=== PATIENT | male | born 1960 | race Caucasian/White ===

== ENCOUNTER 2019-10-15 04:56 | Inpatient (IN) | payer OTHER, SELFPAY ==
[2019-10-15] VITALS (13 sets, daily range): BP systolic 110–156; BP diastolic 55–81; PULSE 69–108; RESP 16–20; TEMP 36.7–39.3; O2SAT 93–95
--- NOTE | ~2019-10-15 | XR_ITS ---
EXAMINATION: XR chest 1V portable DATE: 10/20/2019 06:09 INDICATION: COVID 19 pneumonia TECHNIQUE: frontal view of the chest was obtained. COMPARISON: Chest radiograph dated 10/18/19 FINDINGS: No significant interval change accounting for more lordotic positioning in scattered bilateral streak y and patchy airspace opacities. No pneumothorax or definitive pleural effusion. The cardiomediastina l silhouette is normal. Calcination along an old posterior right seventh rib fracture. IMPRESSION: 1. Unchanged bilateral lung disease which could represent pneumonia and/or atelectasis. Reviewed, dictated and finalized at location A. IMPRESSION: 1. Unchanged bilateral lung disease which could represent pneumonia and/or atel ectasis.
--- NOTE | ~2019-10-15 | XR_ITS ---
EXAMINATION: XR chest 1V portable DATE: 10/17/2019 08:50 INDICATION: COVID-19 pneumonia. TECHNIQUE: A single frontal view of the chest was obtained. COMPARISON: Chest single view 10/15/2019 FINDINGS: There are mild airspace opacities in the mid and lower lung zones. No pleural effusion or p neumothorax. The heart size is normal. IMPRESSION: 1. Stable mild airspace opacities in the mid and lower lung zones, consistent with pneumonia. Reviewed, dictated and finalized at location A. IMPRESSION: 1. Stable mild airspace opacities in the mid and lower lung zones, consistent w ith pneumonia.
--- NOTE | ~2019-10-15 | XR_ITS ---
EXAMINATION: XR chest 1V portable DATE: 10/15/2019 06:22 INDICATION: Cough and fever. TECHNIQUE: A single frontal view of the chest was obtained. COMPARISON: None. FINDINGS: There are airspace opacities in the perihilar regions and lower lung zones. No pleural effu aminta or pneumothorax. The heart size is normal. There is an old healed fracture of right seventh rib. IMPRESSION: 1. Airspace opacities in the perihilar regions and lower lung zones, consistent with pneumonia versus atelectasis versus chronic lung disease. Reviewed, dictated and finalized at location A.
--- NOTE | ~2019-10-15 | XR_ITS ---
EXAMINATION: XR chest 1V portable INDICATION: COVID-19 pneumonia, worsening hypoxia TECHNIQUE: Portable AP chest at 0559 hours COMPARISON: 10/17/2019 FINDINGS: Airspace opacities of the mid and lower lung zones persist with slight worsening. There is also developing airspace opacity of the right upper lung zone. The heart size is normal. There is no pleural effusion or pneumothorax. IMPRESSION: 1. Worsening airspace opacities, consistent with pneumonia. Reviewed, dictated and finalized at location A.
--- NOTE | 2019-10-15 05:12 | ECG_ITS ---
Measurements Intervals [place] Rate: 102 P: 21 FL: 174 QRS: -68 QRSD: 92 T: -9 QT: 344 QTc: 449 Interpretive Statements SINUS TACHYCARDIA LEFT ANTERIOR FASCICULAR BLOCK BORDERLINE T WAVE ABNORMALITY- INFERIOR LEADS BASELINE WANDER- I, II ABNORMAL ECG Electronically Signed On 10-15-2019 7:14:54 CDT by Rafael French D.O.
[2019-10-15 05:45] LABS: Basophils Percent Auto 0.2 % (0.2-1.2); Eosinophils Percent Auto 0.4 % (0-4.4); Hematocrit 45.3 % (42.0-52.0); Hemoglobin 15.6 g/dL (14.0-18.0); Immature Granulocyte Absolute 0.04 K/mm3 (0.00-0.031); Immature Granulocyte Percent A 0.8 % (0-0.5); Lymphocytes Absolute Auto 1.23 K/mm3 (0.9-3.2); Lymphocytes Percent Auto 24.4 % (18.3-44.2); Mean Corpuscular HGB Conc 34.4 g/dl (32-36); Mean Corpuscular Hemoglobin 28.7 pg (26-34); Mean Corpuscular Volume 83.3 fl (80-100); Mean Platelet Volume 10.6 fl (7.4-10.4); Monocytes Absolute Auto 0.4 K/mm3 (0.1-0.6); Monocytes Percent Auto 7.7 % (2.6-8.5); Neutrophils Absolute Auto 3.4 K/mm3 (1.3-6.7); Neutrophils Percent Auto 66.5 % (45.5-73.1); Platelet Count Result 149 k/mm3 (150-375); Red Blood Count 5.44 M/mm3 (4.6-6.20); Red Cell Distribution Width 12.2 % (11.5-14.5)
[2019-10-15 05:57] LABS: Partial Thromboplastin Time 38.8 SECONDS (22.3-36.8); Prothrombin Time 12.7 Seconds (11.1-14.7)
[2019-10-15 06:09] LABS: Alveolar/Arterial O2 Gradient 40.2 mmHg; Carboxyhemoglobin 0.5 % THb (0-2.0); Fractional Inspired Oxygen 21 %; HCO3 ABG 19.8 mEq/l (22.0-26.0); Methemoglobin ABG 0.2 %THb (0-1.5); Oxygen Content ABG 20.7 %vol (16.0-22.0); Oxygen Saturation ABG 96.5 % (95.0-100.0); Oxyhemoglobin 95.1 % THb (90.0-100.0); PCO2 ABG 26.9 mmHg (35.0-45.0); PO2 ABG 77.3 mmHg (80.0-100.0); PO2 FiO2 Ratio Arterial Blood 3.68 %; Reduced Hemoglobin 4.2 %THb (0-5.0); Total Hemoglobin 15.5 g/dL (12.0-18.0); pH ABG 7.484 (7.350-7.450)
[2019-10-15 06:10] LABS: Device ROOM AIR; Modified Allen's Test Pass; Site Drawn RIGHT RADIAL
[2019-10-15 06:14] LABS: Lactate Dehydrogenase 758 U/L (313-618)
[2019-10-15 06:15] LABS: Lactic Acid Reflex 0.9 mmol/L (0.7-2.1)
[2019-10-15 06:16] LABS: Alanine Aminotransferase 36 U/L (4-50); Albumin Level 4.2 g/dL (3.5-5.1); Alkaline Phosphatase 98 U/L (38-126); Aspartate Amino Transferase 51 U/L (17-59); Bilirubin,Total 0.6 mg/dL (0.2-1.3); Blood Urea Nitrogen 11 mg/dL (9-20); CRP 3.6 mg/dL (<1.0); Carbon Dioxide 22 mmol/L (22-30); Chloride 106 mmol/L (98-107); Estimated CRCL calculation 81 ml/min; Estimated Glomerular Filt Rate > 60; Glucose 123 mg/dL (75-110); Lipase 175 U/L (23-300); Potassium 3.6 mmol/L (3.4-5.0); Sodium 136 mmol/L (137-145)
[2019-10-15 06:24] LABS: Troponin I < 0.012 ng/mL (0.000-0.034)
--- NOTE | 2019-10-15 06:34 | ED.FEVER ---
HPI - Fever General Chief Complaint: Fever Stated Complaint: fever Time Seen by Provider: 10/15/19 05:11 Source: patient Mode of arrival: ambulatory Limitations: no limitations History of Present Illness HPI Narrative: This patient is 59 year old male who presents for evaluation of fever and shortness of breath. Patient works as a nurse at [employer]. He has been having fever intermittently for 9 days, and his fever has been constant for the past 3 days . He has been taking tylenol , motrin around the clock. He took 1 gram of tylenol just prior to arrival. Patient states he came in this morning because he is now having shortness of breath with exertion and some substernal chest pressure. He also noticed that his oxygen saturation was 86% on room air at home. He states he was likely exposed during a cardiac arrest in the ER 2 weeks ago. MD elicited complaint: fever Related Data Home Medications Medication Instructions Recorded Confirmed albuterol sulfate [Ventolin HFA] 1 inh INHALATION QID 10/15/19 fluticasone propion-salmeterol 1 inh INHALATION DAILY 10/15/19 [Advair Diskus] Allergies Allergy/AdvReac Type Severity Reaction Status Date / Time povidone-iodine Allergy Rash Verified 10/15/19 07:15 [From Betadine] soap [From Betadine] Allergy Rash Verified 10/15/19 07:15 narcotic AdvReac Nausea and Uncoded 10/15/19 07:15 Vomiting Review of Systems Constitutional: Constitutional: Reports chills, Reports fatigue and Reports fever(s) ENT: Reports sore throat Cardiovascular: Cardiovascular: Reports chest pain Respiratory: Respiratory: Reports cough and Reports dyspnea Gastrointestinal: Gastrointestinal: Denies abdominal pain, Denies nausea and Denies vomiting Neurologic: Reports headache(s) [facility] Past Medical History Medical History (Updated 10/15/19 @ 07:22 by Estelle Zimmerman MD) Asthma Fracture of left tibia and fibula Surgical History Surgical History (Updated 10/15/19 @ 06:39 by Estelle Zimmerman MD) Hx of tonsillectomy Social History Social History (Updated 10/15/19 @ 06:40 by Estelle Zimmerman MD) Smoking status: Never smoker Substance use: never Exam Const: General: no acute distress and alert Orientation/consciousness: patient oriented x3 Limitations: other limitations HENMT: Head: normocephalic and atraumatic Face and sinus: face symmetric Eyes: Pupils: Equal, round and reactive pupils present EOM: EOMs intact bilaterally Chest: Chest palpation & inspection: normal inspection of the chest Resp: Effort & Inspection: normal respiratory effort Auscultation: clear to auscultation bilaterally Cardio: Rate: tachycardic Rhythm: regular rhythm Heart sounds: no murmurs Peripheral pulses: radial pulses present bilateral GI: GI Palp: Yes Soft to palpation, No Tenderness to palpation present (GI), No Guarding due to palpation present (GI), No Rigid due to palpation and No Hernia present Skin: General skin exam: normal color Rashes: no rashes Neuro: General: patient oriented x3 and moves all extremities Extrem: General: no pedal edema Course Consultations Consultation #1: I have discussed case with Dr. Whyte who accepts patient to the medical floor on hospitalist service Date: 10/15/19 Time: 07:21 Vital Signs Vital signs: Vital Signs Temperature 100.5 F H 10/15/19 05:00 Pulse Rate 108 H 10/15/19 05:00 Respiratory Rate 20 10/15/19 05:00 Blood Pressure 125/81 10/15/19 05:00 Pulse Oximetry 94 10/15/19 05:00 Temperature 100.2 F H 10/15/19 07:40 Pulse Rate 94 10/15/19 07:14 Respiratory Rate 18 10/15/19 07:14 Blood Pressure 128/78 10/15/19 07:14 Pulse Oximetry 94 10/15/19 07:14 MDM - Fever Lab Data Attestation: I reviewed the patient's lab results. Result diagrams: 10/15/19 05:34 10/15/19 05:34 Labs: Lab Results 10/15/19 10/15/19 10/15/19 Range/Units 05:34
--- NOTE | 2019-10-15 07:16 | PC.NURSE ---
Pt given urinal for attempt to provide UA, pt refusing straight cath at this time.
[2019-10-15] MEDS: LACTATED RINGERS 1,000 ML 999 ML IV CONT (07:38)
[2019-10-15] MEDS: KETOROLAC 30 MG/ML VIAL (*BKC) IV PUSH (07:38)
[2019-10-15 08:10] LABS: Add Urine Microscopic? YES; Appearance Urine Clear (Clear); Bilirubin Urine Negative (Negative); Blood Urine Negative (Negative); Color Urine Yellow (Yellow); Glucose Urine UA 1+ mg/dL (Negative); Ketones Urine Negative (Negative); Leukocyte Esterase Ur Negative LEU/UL (Negative); Mucus Urine Rare /lpf; Nitrate Urine Negative (Negative); Protein Urine 2+ mg/dL (Negative); Specific Grav Ur 1.012 (1.001-1.035); Squamous Epithelial Cell Urine Rare /hpf (Few); Urobilinogen Urine Negative mg/dL (<2.0); WBC Urine 0-3 /hpf
--- NOTE | 2019-10-15 08:24 | ADMGEN ---
This patient, Judson Ugalde, was admitted to [facility] Surg Room 331-01. Patient/family oriented to hospital policies and general routines including ID bracelet, bed and alarms, visiting hours, pain management, procedures, bathroom and other care routines, personal items, smoking policy, room service/diet, and visiting hours. Valuables list has been completed. Information on how to activate the Rapid Response Team has been discussed. Patient/Family are encouraged to report perceived risks to care and to ask questions if they do not understand what they are told or what they should do.
[2019-10-15] MEDS: LACTATED RINGERS 1,000 ML 125 ML IV CONT ×2 (10:03→17:21)
[2019-10-15] MEDS: ENOXAPARIN 40 MG/0.4 ML SYRINGE SUB-Q (12:30)
--- NOTE | 2019-10-15 16:18 | PM.IMHP ---
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 About 2 weeks ago he was involved in a code blue situation with the patient infected with SARS-CoV-2. About 9 days ago he developed low-grade intermittent fever. He felt achy and tired. For the 2 days prior to admission the fever remained fairly constant at just over 100. His cough increased. He became more short of breath with walking from bed to bathroom. He developed mild sore throat along with the persistent dry cough. He had a mild substernal chest pressure that was worse with coughing. His home pulse oximeter read 86% on room air, therefore he presented to the emergency department. He has a traveling nurse. Most recently he worked in [place] and in [place] prior to coming to [facility]. He he denied other travel. His travels with him. He has been sheltering in place when not working. His own greatly chronic medical condition is asthma which has been under very good control with his maintenance inhaler. He rarely uses his rescue inhaler. Review of Systems Review of Systems: All systems reviewed & are unremarkable except as noted in HPI and below PMFSH Past Medical History Medical History Asthma Fracture of left tibia and fibula Surgical History Surgical History Hx of tonsillectomy Family History Family History Mother Asthma Father Lung cancer Social History Social History (Updated 10/15/19 @ 18:52 by Antione Whyte MD) Smoking status: Never smoker Alcohol intake: never Substance use: never Substance use type: does not use Living arrangements: with family Additional living arrangements comments: Resides with his Occupation/Education: occupation 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 Gender identity (if verbalized by the patient): Male Spiritual care concerns: No Meds Home Medications and Allergies Home Medications Medication Instructions Recorded Confirmed Type albuterol sulfate [Ventolin HFA] 1 inh INHALATION QID 10/15/19 10/15/19 History fluticasone propion-salmeterol 1 inh INHALATION DAILY 10/15/19 10/15/19 History [Advair Diskus] Allergies Allergy/AdvReac Type Severity Reaction Status Date / Time povidone-iodine Allergy Rash Verified 10/15/19 07:15 [From Betadine] soap [From Betadine] Allergy Rash Verified 10/15/19 07:15 narcotic AdvReac Severe Nausea and Uncoded 10/15/19 10:25 Vomiting Vital Signs Vital Signs - 24 hr 10/15/19 05:00 10/15/19 05:22 10/15/19 06:21 Temperature 100.5 F H Pulse Rate 108 H 92 Respiratory Rate 20 20 20 Blood Pressure 125/81 117/66 Pulse Oximetry 94 94 10/15/19 07:14 10/15/19 07:40 10/15/19 08:32 Temperature 100.2 F H Pulse Rate 94 79 Respiratory Rate 18 19 Blood Pressure 128/78 127/65 Pulse Oximetry 94 95 10/15/19 10:00 10/15/19 14:00 10/15/19 15:07 Temperature 98.0 F 99.2 F 102.5 F H Pulse Rate 69 89 Respiratory Rate 16 16 Blood Pressure 110/55 L 156/70 H Pulse Oximetry 94 95 10/15/19 15:37 Temperature 99.5 F Pulse Rate Respiratory Rate Blood Pressure Pulse Oximetry Exam Narrative: Exam Narrative: HEENT: EOMI, PERRL, sclerae nonicteric, pharyngeal mucosa pink and intact NECK: No JVD, adenopathy, or thyromegaly CHEST: Mildly tachypneic with frequent dry cough. Scattered mild expiratory wheezes anteriorly and posteriorly. HEART: NL S1/S2, regular, no murmur ABDOMEN: BS+, soft, nontender, no mass, no bruits EXTREMITIES: No cyanosis, edema, or clubbing NEUROLOGIC: CN intact and symmetric to inspection. MUSCULOSKELETAL: Tone and strength symmetric. PSYCH: Alert. Oriented
[2019-10-15 16:38] LABS: SARS-CoV-2 RNA PCR Positive
[2019-10-15] MEDS: ACETAMINOPHEN 325 MG TABLET 650 MG PO (20:11)
[2019-10-16] VITALS (16 sets, daily range): BP systolic 127–139; BP diastolic 47–70; PULSE 71–98; RESP 14–20; TEMP 37.7–39.5; O2SAT 90–94
[2019-10-16] MEDS: LACTATED RINGERS 1,000 ML 125 ML IV CONT ×2 (01:18→08:18)
[2019-10-16] MEDS: ACETAMINOPHEN 325 MG TABLET 650 MG PO ×3 (01:46→13:26)
[2019-10-16 07:23] LABS: Basophils Percent Auto 0.2 % (0.2-1.2); Hematocrit 41.9 % (42.0-52.0); Immature Granulocyte Absolute 0.05 K/mm3 (0.00-0.031); Lymphocytes Absolute Auto 1.55 K/mm3 (0.9-3.2); Lymphocytes Percent Auto 31.3 % (18.3-44.2); Mean Corpuscular HGB Conc 33.4 g/dl (32-36); Mean Corpuscular Hemoglobin 28.7 pg (26-34); Mean Platelet Volume 10.6 fl (7.4-10.4); Monocytes Absolute Auto 0.3 K/mm3 (0.1-0.6); Monocytes Percent Auto 6.9 % (2.6-8.5); Neutrophils Percent Auto 60.6 % (45.5-73.1); Platelet Count Result 147 k/mm3 (150-375); Red Blood Count 4.87 M/mm3 (4.6-6.20); Red Cell Distribution Width 12.2 % (11.5-14.5)
[2019-10-16 07:35] LABS: D Dimer 0.46 ug/mL (<0.48)
[2019-10-16 07:42] LABS: Alanine Aminotransferase 31 U/L (4-50); Albumin Level 3.8 g/dL (3.5-5.1); Alkaline Phosphatase 82 U/L (38-126); Aspartate Amino Transferase 50 U/L (17-59); Bilirubin,Total 0.4 mg/dL (0.2-1.3); Blood Urea Nitrogen 8 mg/dL (9-20); Calcium 8.2 mg/dL (8.4-10.2); Carbon Dioxide 30 mmol/L (22-30); Chloride 103 mmol/L (98-107); Estimated CRCL calculation 75 ml/min; Estimated Glomerular Filt Rate > 60; Glucose 103 mg/dL (75-110); Potassium 3.6 mmol/L (3.4-5.0); Sodium 138 mmol/L (137-145)
[2019-10-16] MEDS: ENOXAPARIN 40 MG/0.4 ML SYRINGE SUB-Q (08:19)
[2019-10-16 08:39] LABS: CRP 4.7 mg/dL (<1.0)
[2019-10-16] MEDS: TRAMADOL HCL 50 MG TABLET PO (10:33)
[2019-10-16] MEDS: PROCHLORPERAZINE EDISYLATE 10 MG/2 ML VIAL IV PUSH (10:33)
--- NOTE | 2019-10-16 13:20 | PM.IMPN ---
Progress Note: A&P Assessment and Plan (1) Pneumonia due to COVID-19 virus: Code(s): U07.1 - COVID-19; J12.89 - Other viral pneumonia Status: Acute Assessment and Plan: Continue supportive care Follow-up inflammatory markers and chest x-ray 10/15 Discussed with patient and his that lack of significant increase in inflammatory markers, lack of need for supplemental oxygen, and improving symptoms and breath sounds are all encouraging prognostic signs on day 10 of his illness (2) Asthma: Qualifiers: Asthma severity: mild Asthma persistence: persistent Asthma complication type: unspecified Qualified Code(s): J45.30 - Mild persistent asthma, uncomplicated Code(s): J45.909 - Unspecified asthma, uncomplicated Status: Acute Assessment and Plan: Given that his asthma is under good control with only minimal wheezing and that he is SARS-CoV-2 to positiv, will defer steroid treatment at this time. Subjective Date/time seen: 10/16/19 13:20 Interval history: Admitted 10/14 on day 9 of febrile illness with cough, dyspnea, and body aches. SARS-CoV-2 B 2 positive. 10/15. Much less cough today. Last chest pressure. No wheezing. No sputum production. Febrile last night to 102.8 with some chills. Headache today. Tylenol not effective. Tramadol helped. Review of Systems Review of Systems: All systems reviewed & are unremarkable except as noted in HPI and below Exam Narrative: Exam Narrative: HEENT: EOMI, PERRL, sclerae nonicteric, pharyngeal mucosa pink and intact NECK: No JVD, adenopathy, or thyromegaly CHEST: Normal effort. Mild coarseness with minimal crackles in the right lower lobe. HEART: NL S1/S2, regular, no murmur ABDOMEN: BS+, soft, nontender, no mass, no bruits EXTREMITIES: No cyanosis, edema, or clubbing NEUROLOGIC: CN intact and symmetric to inspection. MUSCULOSKELETAL: Tone and strength symmetric. PSYCH: Alert. Oriented to person, place, and time. Objective Data Vital Signs Vital Signs: Vital Signs - 24 hr 10/15/19 14:00 10/15/19 15:07 10/15/19 15:37 Temperature 99.2 F 102.5 F H 99.5 F Pulse Rate 89 Respiratory Rate 16 Blood Pressure 156/70 H Pulse Oximetry 95 10/15/19 20:11 10/15/19 21:11 10/15/19 22:00 Temperature 102.8 F H 100.4 F H 100.4 F H Pulse Rate 86 Respiratory Rate 18 Blood Pressure 135/58 L Pulse Oximetry 93 10/16/19 01:46 10/16/19 02:14 10/16/19 02:46 Temperature 102.6 F H 102.6 F H 100.3 F H Pulse Rate 86 Respiratory Rate 18 Blood Pressure 135/70 Pulse Oximetry 94 10/16/19 06:00 10/16/19 08:24 10/16/19 08:56 Temperature 100.4 F H 101 F H Pulse Rate 81 71 Respiratory Rate 18 20 Blood Pressure 129/59 L Pulse Oximetry 93 10/16/19 09:20 10/16/19 10:40 Temperature 99.9 F H 100 F H Pulse Rate 83 Respiratory Rate 16 Blood Pressure 134/62 Pulse Oximetry 94 Intake/Output Intake/Output: Intake & Output 10/13/19 10/14/19 10/15/19 10/16/19 23:59 23:59 23:59 23:59 Intake Total 1700 2920 Output Total 500 1200 Balance 1200 1720 Meds/Results Medications: Active Medications Generic Name Dose Route Start Last Admin Trade Name Freq PRN Reason Stop Dose Admin Acetaminophen 650 mg 10/15/19 17:44 10/16/19 08:24 Tylenol Tablet PO 650 mg Q4H PRN Administration Headache Albuterol 1 puff 10/15/19 19:01 Proventil Hfa INHALATION QID PRN Dyspnea Enoxaparin Sodium 40 mg 10/15/19 09:00 10/16/19 08:19 Lovenox SUB-Q 40 mg DAILY LINDA Administration Ibuprofen 400 mg 10/16/19 13:17 Motrin PO Q6H PRN Fever over 101 Prochlorperazine Edisylate 10 mg 10/16/19 10:14 10/16/19 10:33 Compazine IV PUSH 10 mg Q6H PRN Administration Nausea And Vomiting Fluticasone/Salmeterol 2 puff 10/16/19 08:00 10/16/19 08:54 Advair Hfa 115-21 Mcg Inhaler (*Sp) INHALATION 2 puff DAILY@0800 LINDA Administration
[2019-10-16] MEDS: IBUPROFEN 400 MG TABLET PO ×2 (14:18→23:00)
[2019-10-16 14:43] LABS: Lactate Dehydrogenase 843 U/L (313-618)
[2019-10-17] VITALS (20 sets, daily range): BP systolic 104–133; BP diastolic 60–76; PULSE 70–101; RESP 18–22; TEMP 37.2–39.6; O2SAT 85–99
[2019-10-17] MEDS: ACETAMINOPHEN 325 MG TABLET 650 MG PO ×5 (00:27→21:11)
[2019-10-17 07:45] LABS: D Dimer 0.46 ug/mL (<0.48)
[2019-10-17 08:32] LABS: CRP 7.9 mg/dL (<1.0); Lactate Dehydrogenase 1055 U/L (313-618)
[2019-10-17] MEDS: ENOXAPARIN 40 MG/0.4 ML SYRINGE SUB-Q (08:51)
[2019-10-17] MEDS: IBUPROFEN 400 MG TABLET PO ×2 (10:24→21:43)
--- NOTE | 2019-10-17 10:40 | PM.IMPN ---
Progress Note: A&P Assessment and Plan (1) Pneumonia due to COVID-19 virus: Code(s): U07.1 - COVID-19; J12.89 - Other viral pneumonia Status: Acute Assessment and Plan: Continue supportive care Follow-up inflammatory markers and chest x-ray 10/16 Discussed with patient and his that his continued fevers are not unexpected nor are his mild increases in inflammatory markers. Lack of increase in D-dimer and stability of chest x-ray are encouraging. Slight increased oxygen requirement is worrisome. There friend and primary physician has encouraged them to request IV azithromycin and IV vitamin-C. Unfortunately IV vitamin-C is not available here. Azithromycin IV day 2 (2) Asthma: Qualifiers: Asthma severity: mild Asthma persistence: persistent Asthma complication type: unspecified Qualified Code(s): J45.30 - Mild persistent asthma, uncomplicated Code(s): J45.909 - Unspecified asthma, uncomplicated Status: Acute Assessment and Plan: Given that his asthma is under good control with only minimal wheezing and that he is SARS-CoV-2 to positiv, will defer steroid treatment at this time. Subjective Date/time seen: 10/17/19 10:40 Interval history: Admitted 10/14 on day 9 of febrile illness with cough, dyspnea, and body aches. SARS-CoV-2 B 2 positive. 10/16. Short of breath while walking to bathroom with some drop in saturations to the upper 80s. Still with dry cough not as severe as at admission. Poor appetite. Tramadol effective for headache. Only water and oriented seem to have any taste. No wheezing. No sputum production. Febrile last night again with some chills and sweats. Review of Systems Review of Systems: All systems reviewed & are unremarkable except as noted in HPI and below Exam Narrative: Exam Narrative: HEENT: EOMI, PERRL, sclerae nonicteric, pharyngeal mucosa pink and intact NECK: No JVD, adenopathy, or thyromegaly CHEST: Normal effort. Clear to auscultation HEART: NL S1/S2, regular, no murmur ABDOMEN: BS+, soft, nontender, no mass, no bruits EXTREMITIES: No cyanosis, edema, or clubbing NEUROLOGIC: CN intact and symmetric to inspection. MUSCULOSKELETAL: Tone and strength symmetric. PSYCH: Alert. Oriented to person, place, and time. Objective Data Vital Signs Vital Signs: Vital Signs - 24 hr 10/16/19 13:15 10/16/19 13:26 10/16/19 14:15 Temperature 100.6 F H 100.6 F H 103.1 F H Pulse Rate 80 Respiratory Rate 14 Blood Pressure 127/47 L Pulse Oximetry 93 10/16/19 14:18 10/16/19 14:37 10/16/19 15:15 Temperature 103.1 F H 103.1 F H 100.3 F H Pulse Rate Respiratory Rate Blood Pressure Pulse Oximetry 10/16/19 22:00 10/16/19 23:00 10/17/19 00:00 Temperature 103.0 F H 103 F H 100.3 F H Pulse Rate 98 Respiratory Rate 18 Blood Pressure 139/68 Pulse Oximetry 90 10/17/19 00:27 10/17/19 01:48 10/17/19 02:00 Temperature 100.3 F H 99.1 F 99.1 F Pulse Rate 88 Respiratory Rate 18 Blood Pressure 128/63 Pulse Oximetry 92 10/17/19 06:00 10/17/19 08:52 10/17/19 09:52 Temperature 99.7 F H 101.4 F H 102.5 F H Pulse Rate 79 Respiratory Rate 18 Blood Pressure 113/60 Pulse Oximetry 98 10/17/19 10:24 Temperature 102.5 F H Pulse Rate Respiratory Rate Blood Pressure Pulse Oximetry Intake/Output Intake/Output: Intake & Output 10/14/19 10/15/19 10/16/19 10/17/19 23:59 23:59 23:59 23:59 Intake Total 1700 5050 400 Output Total 500 3300 Balance 1200 1750 400 Meds/Results Medications: Active Medications Generic Name Dose Route Start Last Admin Trade Name Freq PRN Reason Stop Dose Admin Acetaminophen 650 mg 10/15/19 17:44 10/17/19 08:52 Tylenol Tablet PO 650 mg Q4H PRN Administration Headache Albuterol 1 puff 10/15/19 19:01 Proventil Hfa INHALATION QID PRN Dyspnea Enoxaparin Sodium 40 mg 10/15/19 09:00 10/17/19 08:51
[2019-10-17] MEDS: PROCHLORPERAZINE EDISYLATE 10 MG/2 ML VIAL IV PUSH (11:55)
[2019-10-17] MEDS: TRAMADOL HCL 50 MG TABLET PO (11:55)
[2019-10-18] VITALS (15 sets, daily range): BP systolic 104–133; BP diastolic 62–68; PULSE 73–89; RESP 18–28; TEMP 37.1–39; O2SAT 91–99
[2019-10-18] MEDS: ACETAMINOPHEN 325 MG TABLET 650 MG PO ×6 (01:08→19:56)
[2019-10-18 07:10] LABS: Hematocrit 41.2 % (42.0-52.0); Hemoglobin 13.7 g/dL (14.0-18.0); Mean Corpuscular HGB Conc 33.3 g/dl (32-36); Mean Corpuscular Hemoglobin 28.5 pg (26-34); Mean Corpuscular Volume 85.7 fl (80-100); Mean Platelet Volume 11.3 fl (7.4-10.4); Platelet Count Result 163 k/mm3 (150-375); Red Blood Count 4.81 M/mm3 (4.6-6.20); Red Cell Distribution Width 12.5 % (11.5-14.5); White Blood Count 9.7 K/mm3 (4.5-10.0)
[2019-10-18 07:35] LABS: D Dimer 0.65 ug/mL (<0.48)
[2019-10-18 07:42] LABS: Alanine Aminotransferase 41 U/L (4-50); Albumin Level 3.6 g/dL (3.5-5.1); Alkaline Phosphatase 92 U/L (38-126); Aspartate Amino Transferase 70 U/L (17-59); Bilirubin,Total 0.5 mg/dL (0.2-1.3); Blood Urea Nitrogen 16 mg/dL (9-20); CRP 20.2 mg/dL (<1.0); Calcium 7.6 mg/dL (8.4-10.2); Carbon Dioxide 31 mmol/L (22-30); Chloride 98 mmol/L (98-107); Estimated CRCL calculation 75 ml/min; Estimated Glomerular Filt Rate > 60; Glucose 102 mg/dL (75-110); Lactate Dehydrogenase 1162 U/L (313-618); Potassium 3.5 mmol/L (3.4-5.0); Sodium 135 mmol/L (137-145)
[2019-10-18] MEDS: IBUPROFEN 400 MG TABLET PO (08:40)
[2019-10-18] MEDS: ENOXAPARIN 40 MG/0.4 ML SYRINGE SUB-Q (10:50)
--- NOTE | 2019-10-18 16:17 | PM.IMPN ---
Progress Note: A&P Assessment and Plan (1) Pneumonia due to COVID-19 virus: Code(s): U07.1 - COVID-19; J12.89 - Other viral pneumonia Status: Acute Assessment and Plan: Continue supportive care Follow-up inflammatory markers and chest x-ray 10/16 Discussed with patient and his that his continued fevers are not unexpected nor are his mild increases in inflammatory markers. Lack of increase in D-dimer and stability of chest x-ray are encouraging. Slight increased oxygen requirement is worrisome. There friend and primary physician has encouraged them to request IV azithromycin and IV vitamin-C. Unfortunately IV vitamin-C is not available here. 10/17 CXR a little worse, CRP to 20, D Dimer, LDH, Ferritin all up a bit Azithromycin IV day 3 (2) Asthma: Qualifiers: Asthma severity: mild Asthma persistence: persistent Asthma complication type: unspecified Qualified Code(s): J45.30 - Mild persistent asthma, uncomplicated Code(s): J45.909 - Unspecified asthma, uncomplicated Status: Acute Assessment and Plan: Given that his asthma is under good control with only minimal wheezing and that he is SARS-CoV-2 to positiv, will defer steroid treatment at this time. Subjective Date/time seen: 10/18/19 12:30 Interval history: Admitted 10/14 on day 9 of febrile illness with cough, dyspnea, and body aches. SARS-CoV-2 B 2 positive. 10/16. Short of breath while walking to bathroom with some drop in saturations to the upper 80s. 10/17. Febrile early this AM, but with less diaphoresis. Still with dry cough not as severe as at admission. Poor appetite, although has a taste for apple pie ala mode. Tylenol and ibuprofen helped with fever. Only water and orange juice seem to have any taste still. No wheezing. No sputum production. No GI or c/o. Review of Systems Review of Systems: All systems reviewed & are unremarkable except as noted in HPI and below Exam Narrative: Exam Narrative: HEENT: EOMI, PERRL, sclerae nonicteric, pharyngeal mucosa pink and intact NECK: No JVD, adenopathy, or thyromegaly CHEST: Normal effort. Clear to auscultation HEART: NL S1/S2, regular, no murmur ABDOMEN: BS+, soft, nontender, no mass, no bruits EXTREMITIES: No cyanosis, edema, or clubbing NEUROLOGIC: CN intact and symmetric to inspection. MUSCULOSKELETAL: Tone and strength symmetric. PSYCH: Alert. Oriented to person, place, and time. Objective Data Vital Signs Vital Signs: Vital Signs - 24 hr 10/17/19 18:00 10/17/19 20:00 10/17/19 21:00 Temperature 98.9 F 103.2 F H Pulse Rate 78 83 95 Respiratory Rate 18 20 Blood Pressure 104/76 133/72 Pulse Oximetry 99 97 91 10/17/19 21:43 10/17/19 23:15 10/18/19 00:00 Temperature 103.2 F H 100.2 F H Pulse Rate 80 Respiratory Rate Blood Pressure Pulse Oximetry 10/18/19 01:06 10/18/19 01:07 10/18/19 04:00 Temperature 99.7 F H 99.7 F H Pulse Rate 80 74 Respiratory Rate 18 Blood Pressure 104/62 Pulse Oximetry 92 10/18/19 06:00 10/18/19 08:00 10/18/19 08:38 Temperature 102.2 F H Pulse Rate 87 89 Respiratory Rate 22 H Blood Pressure 133/68 Pulse Oximetry 93 91 10/18/19 10:00 10/18/19 14:00 Temperature 99.3 F 98.7 F Pulse Rate 89 74 Respiratory Rate 20 20 Blood Pressure 116/65 114/65 Pulse Oximetry 92 94 Intake/Output Intake/Output: Intake & Output 10/15/19 10/16/19 10/17/19 10/18/19 23:59 23:59 23:59 23:59 Intake Total 1700 5050 1200 470 Output Total 500 3300 Balance 1200 1750 1200 470 Meds/Results Medications: Active Medications Generic Name Dose Route Start Last Admin Trade Name Freq PRN Reason Stop Dose Admin Acetaminophen 650 mg 10/17/19 13:00 10/18/19 14:13 Tylenol Tablet PO 650 mg Q4H LINDA Administration Albuterol 1 puff 10/15/19 19:01 Proventil Hfa INHALATION QID PRN Dyspnea Enoxaparin Sodium 40 mg 10/15/19 09:00 10/18/19 10
[2019-10-19] VITALS (16 sets, daily range): BP systolic 98–123; BP diastolic 55–70; PULSE 54–94; RESP 16–28; TEMP 36.4–38.6; O2SAT 86–100
[2019-10-19] MEDS: IBUPROFEN 400 MG TABLET PO
[2019-10-19] MEDS: ACETAMINOPHEN 325 MG TABLET 650 MG PO ×6 (01:44→20:49)
[2019-10-19 07:15] LABS: D Dimer 0.69 ug/mL (<0.48)
[2019-10-19 09:29] LABS: Lactate Dehydrogenase 1270 U/L (313-618)
[2019-10-19] MEDS: ENOXAPARIN 40 MG/0.4 ML SYRINGE SUB-Q (10:01)
--- NOTE | 2019-10-19 17:02 | PM.IMPN ---
Progress Note: A&P Assessment and Plan (1) Pneumonia due to COVID-19 virus: Code(s): U07.1 - COVID-19; J12.89 - Other viral pneumonia Status: Acute Assessment and Plan: Continue supportive care Follow-up inflammatory markers and chest x-ray 10/16 Discussed with patient and his that his continued fevers are not unexpected nor are his mild increases in inflammatory markers. Lack of increase in D-dimer and stability of chest x-ray are encouraging. Slight increased oxygen requirement is worrisome. There friend and primary physician has encouraged them to request IV azithromycin and IV vitamin-C. Unfortunately IV vitamin-C is not available here. 10/17 CXR a little worse, CRP to 20, D Dimer, LDH, Ferritin all up a bit 10/18 CRP 24, D Dimer 0.69, LDH 1270, Ferritin 737 Azithromycin IV day 4 (2) Asthma: Qualifiers: Asthma severity: mild Asthma persistence: persistent Asthma complication type: unspecified Qualified Code(s): J45.30 - Mild persistent asthma, uncomplicated Code(s): J45.909 - Unspecified asthma, uncomplicated Status: Acute Assessment and Plan: Stable No steroids indicated Subjective Date/time seen: 10/19/19 17:02 Interval history: Admitted 10/14 on day 9 of febrile illness with cough, dyspnea, and body aches. SARS-CoV-2 B 2 positive. 10/16. Short of breath while walking to bathroom with some drop in saturations to the upper 80s. 10/18 Still comfortable on 3 L oxygen. CRAFT walking to BR. Sats decrease to upper 80s when wearing oxygen and walking to bathroom. No wheezing. No sputum production. No chest pain. No GI or c/o. Review of Systems Review of Systems: All systems reviewed & are unremarkable except as noted in HPI and below Exam Narrative: Exam Narrative: HEENT: EOMI, PERRL, sclerae nonicteric, pharyngeal mucosa pink and intact NECK: No JVD, adenopathy, or thyromegaly CHEST: Normal effort. Clear to auscultation HEART: NL S1/S2, regular, no murmur ABDOMEN: BS+, soft, nontender, no mass, no bruits EXTREMITIES: No cyanosis, edema, or clubbing NEUROLOGIC: CN intact and symmetric to inspection. MUSCULOSKELETAL: Tone and strength symmetric. PSYCH: Alert. Oriented to person, place, and time. Objective Data Vital Signs Vital Signs: Vital Signs - 24 hr 10/18/19 18:00 10/18/19 20:00 10/18/19 22:00 Temperature 99.5 F 101.9 F H 99.0 F Pulse Rate 75 87 86 Respiratory Rate 28 H 20 Blood Pressure 126/64 123/67 Pulse Oximetry 93 93 10/18/19 22:39 10/19/19 00:00 10/19/19 01:00 Temperature 101.4 F H 100.4 F H Pulse Rate 85 Respiratory Rate Blood Pressure Pulse Oximetry 93 10/19/19 01:53 10/19/19 02:00 10/19/19 04:00 Temperature 100.4 F H Pulse Rate 94 70 Respiratory Rate 20 Blood Pressure 98/65 L Pulse Oximetry 90 86 L 10/19/19 07:43 10/19/19 08:00 10/19/19 09:26 Temperature 97.5 F L Pulse Rate 54 L 62 Respiratory Rate 16 20 Blood Pressure 116/70 Pulse Oximetry 100 92 92 10/19/19 10:00 10/19/19 12:00 10/19/19 14:00 Temperature 98.1 F 98.0 F Pulse Rate 62 66 67 Respiratory Rate 28 H 28 H Blood Pressure 106/61 110/65 Pulse Oximetry 91 95 10/19/19 16:00 Temperature Pulse Rate 68 Respiratory Rate Blood Pressure Pulse Oximetry Intake/Output Intake/Output: Intake & Output 10/16/19 10/17/19 10/18/19 10/19/19 23:59 23:59 23:59 23:59 Intake Total 5050 1200 1170 980 Output Total 3300 900 Balance 1750 1200 270 980 Meds/Results Medications: Active Medications Generic Name Dose Route Start Last Admin Trade Name Freq PRN Reason Stop Dose Admin Acetaminophen 650 mg 10/17/19 13:00 10/19/19 10:01 Tylenol Tablet PO 650 mg Q4H [facility] Administration Albuterol 1 puff 10/15/19 19:01 Proventil Hfa INHALATION QID PRN Dyspnea Enoxaparin Sodium 40 mg 10/15/19 09:00 10/19/19 10:01 Lovenox SUB-Q 40 mg DAILY [facility] Administratio
[2019-10-20] VITALS (12 sets, daily range): BP systolic 99–157; BP diastolic 41–69; PULSE 59–87; RESP 16–20; TEMP 36.6–36.9; O2SAT 91–97
[2019-10-20] MEDS: ACETAMINOPHEN 325 MG TABLET 650 MG PO ×6 (01:00→21:17)
[2019-10-20 06:28] LABS: Hematocrit 39.5 % (42.0-52.0); Hemoglobin 13.3 g/dL (14.0-18.0); Mean Corpuscular HGB Conc 33.7 g/dl (32-36); Mean Corpuscular Hemoglobin 28.5 pg (26-34); Mean Corpuscular Volume 84.8 fl (80-100); Mean Platelet Volume 11.4 fl (7.4-10.4); Platelet Count Result 192 k/mm3 (150-375); Red Blood Count 4.66 M/mm3 (4.6-6.20); Red Cell Distribution Width 12.4 % (11.5-14.5); White Blood Count 7.7 K/mm3 (4.5-10.0)
[2019-10-20 07:01] LABS: Albumin Level 3.4 g/dL (3.5-5.1)
[2019-10-20 07:10] LABS: Alanine Aminotransferase 34 U/L (4-50); Alkaline Phosphatase 120 U/L (38-126); Aspartate Amino Transferase 53 U/L (17-59); Bilirubin,Total 0.5 mg/dL (0.2-1.3); Blood Urea Nitrogen 20 mg/dL (9-20); CRP 19.7 mg/dL (<1.0); Calcium 7.9 mg/dL (8.4-10.2); Carbon Dioxide 32 mmol/L (22-30); Chloride 100 mmol/L (98-107); Estimated CRCL calculation 81 ml/min; Estimated Glomerular Filt Rate > 60; Glucose 96 mg/dL (75-110); Lactate Dehydrogenase 1153 U/L (313-618); Potassium 3.3 mmol/L (3.4-5.0); Sodium 135 mmol/L (137-145)
[2019-10-20 07:37] LABS: D Dimer 0.74 ug/mL (<0.48)
[2019-10-20] MEDS: POTASSIUM CHLORIDE 20 MEQ TABLET 40 MEQ PO (08:48)
[2019-10-20] MEDS: ENOXAPARIN 40 MG/0.4 ML SYRINGE SUB-Q (08:49)
--- NOTE | 2019-10-20 12:23 | PM.IMPN ---
Progress Note: A&P Assessment and Plan (1) Pneumonia due to COVID-19 virus: Code(s): U07.1 - COVID-19; J12.89 - Other viral pneumonia Status: Acute Assessment and Plan: Day 14 of illness 10/16 Discussed with patient and his that his continued fevers are not unexpected nor are his mild increases in inflammatory markers. Lack of increase in D-dimer and stability of chest x-ray are encouraging. Slight increased oxygen requirement is worrisome. There friend and primary physician has encouraged them to request IV azithromycin and IV vitamin-C. Unfortunately IV vitamin-C is not available here. 10/17 CXR a little worse, CRP to 20, D Dimer, LDH, Ferritin all up a bit 10/18 CRP 24, D Dimer 0.69, LDH 1270, Ferritin 737 10/19 CXR stable and O2 sat improved CRP 19.7, D Dimer 0.74, LDH 1153, Ferritin 894 (3/4 markers stable or trending down); afebril overnight Azithromycin IV day , d/c due to loose stools 10/20 Home oxygen evaluation and consider discharge if labs, fever curve, oxygenation continue to improve (2) Asthma: Qualifiers: Asthma severity: mild Asthma persistence: persistent Asthma complication type: unspecified Qualified Code(s): J45.30 - Mild persistent asthma, uncomplicated Code(s): J45.909 - Unspecified asthma, uncomplicated Status: Acute Assessment and Plan: Stable No steroids indicated Subjective Date/time seen: 10/20/19 12:23 Interval history: Admitted 10/14 on day 9 of a febrile illness with cough, dyspnea, and body aches. SARS-CoV-2 B 2 positive. 10/16. Short of breath while walking to bathroom with some drop in saturations to the upper 80s. 10/18 Still comfortable on 3 L oxygen. CRAFT walking to BR. Sats decrease to upper 80s when wearing oxygen and walking to bathroom. Some loose stool. 10/19 NO fever overnight. Remains on 3 L oxygen. CRAFT a little less when walking to BR. Loose stool again this AM. Appetite improved. Ate 3/4 of a hamburger today. No wheezing. No sputum production. No chest pain. No other GI or c/o. No bleeding. Review of Systems Review of Systems: All systems reviewed & are unremarkable except as noted in HPI and below Exam Narrative: Exam Narrative: HEENT: EOMI, PERRL, sclerae nonicteric, pharyngeal mucosa pink and intact NECK: No JVD, adenopathy, or thyromegaly CHEST: Normal effort. Clear to auscultation HEART: NL S1/S2, regular, no murmur ABDOMEN: BS+, soft, nontender, no mass, no bruits EXTREMITIES: No cyanosis, edema, or clubbing NEUROLOGIC: CN intact and symmetric to inspection. MUSCULOSKELETAL: Tone and strength symmetric. PSYCH: Alert. Oriented to person, place, and time. Objective Data Vital Signs Vital Signs: Vital Signs - 24 hr 10/19/19 14:00 10/19/19 16:00 10/19/19 18:00 Temperature 98.0 F 98.7 F Pulse Rate 68 68 73 Respiratory Rate 28 H 24 H Blood Pressure 110/65 123/55 L Pulse Oximetry 92 92 10/19/19 19:16 10/19/19 20:00 10/19/19 22:00 Temperature 98.5 F Pulse Rate 89 82 81 Respiratory Rate 20 Blood Pressure 106/65 Pulse Oximetry 92 92 10/20/19 00:00 10/20/19 02:00 10/20/19 04:00 Temperature 97.8 F Pulse Rate 63 65 59 L Respiratory Rate 20 Blood Pressure 99/51 L Pulse Oximetry 91 91 10/20/19 05:53 10/20/19 07:40 10/20/19 08:00 Temperature 98.5 F Pulse Rate 59 L 72 72 Respiratory Rate 18 20 Blood Pressure 99/55 L Pulse Oximetry 92 96 10/20/19 10:00 Temperature 98.2 F Pulse Rate 67 Respiratory Rate 16 Blood Pressure 117/61 Pulse Oximetry 96 Intake/Output Intake/Output: Intake & Output 10/17/19 10/18/19 10/19/19 10/20/19 23:59 23:59 23:59 23:59 Intake Total 1200 1170 1730 110 Output Total 900 Balance 3128 962 5802 110 Meds/Results Medications: Active Medications Generic Name Dose Route Start Last Admin Trade Name Freq PRN Reason Stop Dose Admin Acetaminophen 650 mg 10/17/19 13:00 10/20/19 08:49 Tylenol Tablet
[2019-10-21] VITALS (15 sets, daily range): BP systolic 118–137; BP diastolic 50–63; PULSE 59–112; RESP 16–18; TEMP 36.7–37.2; O2SAT 87–94
[2019-10-21] MEDS: ACETAMINOPHEN 325 MG TABLET 650 MG PO ×3 (01:13→08:19)
[2019-10-21 06:24] LABS: Hematocrit 38.2 % (42.0-52.0); Hemoglobin 12.9 g/dL (14.0-18.0); Mean Corpuscular HGB Conc 33.8 g/dl (32-36); Mean Corpuscular Hemoglobin 28.4 pg (26-34); Platelet Count Result 223 k/mm3 (150-375); Red Blood Count 4.55 M/mm3 (4.6-6.20); Red Cell Distribution Width 12.2 % (11.5-14.5); White Blood Count 8.9 K/mm3 (4.5-10.0)
[2019-10-21 06:37] LABS: D Dimer 0.64 ug/mL (<0.48)
[2019-10-21 06:44] LABS: Alanine Aminotransferase 38 U/L (4-50); Albumin Level 3.4 g/dL (3.5-5.1); Alkaline Phosphatase 154 U/L (38-126); Aspartate Amino Transferase 61 U/L (17-59); Bilirubin,Total 0.6 mg/dL (0.2-1.3); Blood Urea Nitrogen 16 mg/dL (9-20); Carbon Dioxide 31 mmol/L (22-30); Chloride 100 mmol/L (98-107); Estimated CRCL calculation 89 ml/min; Estimated Glomerular Filt Rate > 60; Glucose 100 mg/dL (75-110); Lactate Dehydrogenase 1132 U/L (313-618); Potassium 3.4 mmol/L (3.4-5.0); Sodium 136 mmol/L (137-145)
[2019-10-21 07:03] LABS: CRP 12.9 mg/dL (<1.0)
[2019-10-21] MEDS: ENOXAPARIN 40 MG/0.4 ML SYRINGE SUB-Q (08:19)
[2019-10-21 13:05] LABS: Procalcitonin 0.41 ng/mL (<0.10)
--- NOTE | 2019-10-22 18:16 | P.DS_ITS ---
DS: Admitting Diagnosis Admitting Diagnosis Admitting Diagnosis: COVID-19 DS: Discharge Diagnosis Discharge Diagnosis (1) Pneumonia due to COVID-19 virus: Code(s): U07.1 - COVID-19; J12.89 - Other viral pneumonia Status: Acute Assessment and Plan: * Day 14 of illness * 10/17 CXR a little worse, CRP to 20, D Dimer, LDH, Ferritin all up a bit * 10/18 CRP 24, D Dimer 0.69, LDH 1270, Ferritin 737 * 10/19 CXR stable and O2 sat improved * 10/20 markers stable or trending down); afebrile overnight, CRP dropped from 19-12 * Azithromycin IV day 5, d/c due to loose stools * 10/20 Home oxygen evaluation revealed 2 L nasal cannula (2) Asthma: Qualifiers: Asthma severity: mild Asthma persistence: persistent Asthma complication type: unspecified Qualified Code(s): J45.30 - Mild persistent asthma, uncomplicated Code(s): J45.909 - Unspecified asthma, uncomplicated Status: Acute Assessment and Plan: * Stable * No steroids indicated DS: Summary Hospital Course Hospital Course: 59-year-old asthmatic otherwise healthy admitted after self quarentine with COVID illness. Had 0 O2 sat meter at home and when saturation dropped to 86% presented to emergency room and was admitted. Clinical course here was uneventful and improved slowly over the course of his stay with inflammatory markers peaking and falling. Still hypoxic on room air at discharge was discharged on 2 L nasal cannula. Will need follow-up chest x-ray within 1-2 weeks with his primary will self quarantine for another probable 10 days. He was afebrile for 48 hours prior to discharge. CRP had dropped from 19-12 Time Spent with Patient Time attestation: Total time spent providing and/or coordinating discharge services: 35 minutes Exam 2 Narrative: Exam Narrative: Condition on discharge Blood pressure 118/50 pulse is 80 afebrile saturating 90% on 2 L nasal cannula Lungs very faint basal crackle CV regular rate rhythm no murmurs Abdomen soft nontender Extremities without edema good distal pulses Neuro alert pleasant cooperative no focal deficits Discharge Plan Discharge Attending physician on discharge: Kyler Kelly Discharging Clinician: Kyler Kelly Patient Disposition: Home, Self-Care Activity: as tolerated Diet: regular Patient Instructions: Antibiotic Form, COVID-19 (Coronavirus Disease 2019) (DC) Stand Alone Forms: General Discharge Information Follow-up/Referrals: PHYSICIAN NOT ON STAFF,NONSTAFF [Primary Care Provider] - 1 Week Discharge Medications: Continued fluticasone propion-salmeterol [Advair Diskus] 250-50 mcg/dose Blister With Device 1 inh INHALATION DAILY RF: 0 albuterol sulfate [Ventolin HFA] 90 mcg/actuation Hfa Aerosol Inhaler 1 inh INHALATION QID RF: 0 Date of admission: 10/15/19 07:19 Primary Care Provider: PHYSICIAN NOT ON STAFF,NONSTAFF Admitting Provider: Antione Whyte Discharge Date/Time: 10/21/19 17:35 Attending physician on admission: Antione Whyte Condition: Stable Quality VTE Prophylaxis VTE prophylaxis: pharmacologic ordered
== END 2019-10-21 17:35 | disposition home or self-care (01) | DRG 177 ==
LOC: ANHED 07:22 → ANH3MEDSUR 10-16 10:36
PROVIDERS: Admitting Provider Internal Medicine; Emergency Provider General Practice; Visit Provider Internal Medicine
DX: U07.1 COVID-19 (principal); J12.89 Other viral pneumonia; J45.909 Unspecified asthma, uncomplicated
CPT/HCPCS: 36415; 36600; 71045; 80053; 81001; 82375; 82728; 82805; 83050; 83605; 83615; 83690; 84145; 84484; 85025; 85027; 85380; 85610; 85730; 86140; 87040; 87635; 93005; 94618; 94640; 96365; 96375; 99285; A9270; J0131; J0456; J0696; J0780; J1650; J1885; J7120; U0003